=== PATIENT | male | born 1960 | race Caucasian/White ===

== ENCOUNTER 2021-11-27 10:10 | Day surgery (SDC) | payer BC, OTHER ==
[2021-11-27 10:24] VITALS: BMI 23.3
[2021-11-27 11:47] VITALS: BP 128/72; PULSE 73; TEMP 98
== END 2021-11-27 12:17 | disposition home or self-care (01) ==
LOC: FASU-ENDO 10:10
PROVIDERS: ATTEND Internal Medicine Gastroenterology
PROC: 0DJD8ZZ Inspection of Lower Intestinal Tract, Via Natural or Artificial Opening Endoscopic (ICD-10-PCS; principal; 2021-11-27 10:40)
DX: Z12.11 Encounter for screening for malignant neoplasm of colon (principal); Z83.71 Family history of colonic polyps